=== PATIENT | female | born 1975 | race Caucasian/White ===

== ENCOUNTER → 2016-07-02 | Outpatient (REF) | payer BC | LOC: M LAB REF 12:11 | PROVIDERS: ATTEND Physician Assistant | DX: J02.9 Acute pharyngitis, unspecified (principal) ==

== ENCOUNTER → 2016-09-20 | Outpatient (CLI) | payer BC ==
--- NOTE | 2016-09-20 19:04 | REP ---
LEFT FOOT SERIES: Four views of the left foot were performed. There is no acute fracture or dislocation. There is moderate inferior calcaneal spurring. There is no other significant finding. IMPRESSION: No fracture or dislocation. Moderate inferior calcaneal spurring. Signed by Quique Frederick MD 09/21/2016 12:34 P
== END ==
LOC: M LRY 17:42
PROVIDERS: ATTEND Nurse Practitioner Family
DX: M79.672 Pain in left foot (principal); M77.32 Calcaneal spur, left foot

== ENCOUNTER → 2017-11-06 | Outpatient (CLI) | payer BC | LOC: M LRY 14:29 | DX: M79.671 Pain in right foot (principal) | CPT/HCPCS: 73630 ==